=== PATIENT | female | born 1955 | race Caucasian/White ===

== ENCOUNTER → 2016-08-15 | Outpatient (CLI) | payer OTHER | LOC: MAMO 09:49 | DX: Z12.31 Encounter for screening mammogram for malignant neoplasm of breast (principal); Z90.710 Acquired absence of both cervix and uterus | CPT/HCPCS: G0202 ==

== ENCOUNTER → 2020-09-08 | Outpatient (CLI) | payer OTHER, SELFPAY ==
[~2020-09-08] MED LIST: ALTOPREV40 MG PO; CALCIUM + VITA1 EACH PO; CALCIUM600 MG PO; CELEXA40 MG PO; ECOTRIN81 MG PO; KEFLEX CAP 500500 MG PO; LOPRESSOR 25 MG25 MG PO; OMNICEF 300 MG300 MG PO; PREDNISONE 50 M50 MG PO; PREDNISONE10 MG PO; PREDNISONE20 MG PO; PROTONIX 20 MG20 MG PO; PROTONIX40 MG PO; ROBITUSSIN DM473 ML PO; TESSALON PERLE100 MG PO; VENTOLIN HFA 66.7 GM INH; VIBRAMYCIN100 MG PO; VITAMIN D32000 UNI1 PO; VITAMIN D325 MCG PO; ZITHROMAX250 MG PO; ZOCOR20 MG PO; ZOFRAN ODT 4 MG4 MG SL
== END ==
LOC: LAB 10:20
PROVIDERS: Family Medicine
DX: M79.672 Pain in left foot (principal); E11.9 Type 2 diabetes mellitus without complications; E55.9 Vitamin D deficiency, unspecified; E87.5 Hyperkalemia; E53.8 Deficiency of other specified B group vitamins
CPT/HCPCS: 36415; 73630; 80053; 80061; 82607

== ENCOUNTER → 2020-10-17 | Outpatient (CLI) | payer OTHER | LOC: MAMO 15:18 | PROVIDERS: Family Medicine | DX: Z12.31 Encounter for screening mammogram for malignant neoplasm of breast (principal); E11.9 Type 2 diabetes mellitus without complications; E55.9 Vitamin D deficiency, unspecified | CPT/HCPCS: 36415; 77063; 77067; 82043; 82570 ==

== ENCOUNTER 2020-10-31 09:57 | Observation (INO) | payer OTHER ==
[~2020-10-31] VITALS: Ht 154.9 cm; Wt 71.7 kg
[~2020-10-31 09:57] MED LIST changes: -CELEXA40 MG PO; -PROTONIX40 MG PO; -VITAMIN D325 MCG PO
[2020-10-31 10:58] LABS: HEMOGLOBIN 14.4 gm/dl (12.3-15.3); RED BLOOD COUNT 4.52 M/UL (4.00-5.10); WHITE BLOOD COUNT 7.8 K/UL (4.5-11.0)
[2020-10-31 11:25] LABS: BUN/CREATININE RATIO 12 (0-10)
[2020-10-31] MEDS ORDERED: PROTONIX40 MG PO (15:20)
[2020-10-31] MEDS ORDERED: VITAMIN D325 MCG PO (15:21)
[2020-10-31] MEDS ORDERED: CELEXA40 MG PO (18:00)
[2020-11-01 02:45] LABS: HEMOGLOBIN 12.7 gm/dl (12.3-15.3); WHITE BLOOD COUNT 6.6 K/UL (4.5-11.0)
[2020-11-01 03:03] LABS: RED BLOOD COUNT 4.03 M/UL (4.00-5.10)
== END 2020-11-01 18:30 | disposition home or self-care (01) ==
LOC: ER1 09:57 → M/S 14:30 → CDU 14:30 → M/S 16:54
PROVIDERS: Internal Medicine; Physician Assistant; ADMIT Internal Medicine
DX: R07.9 Chest pain, unspecified (principal); M79.601 Pain in right arm; M79.602 Pain in left arm; I95.9 Hypotension, unspecified; R77.8 Other specified abnormalities of plasma proteins; E11.9 Type 2 diabetes mellitus without complications; E78.5 Hyperlipidemia, unspecified; K21.9 Gastro-esophageal reflux disease without esophagitis; M54.6 Pain in thoracic spine; M54.5 Low back pain; G89.29 Other chronic pain; Z87.891 Personal history of nicotine dependence; Z88.2 Allergy status to sulfonamides; Z88.5 Allergy status to narcotic agent; Z79.82 Long term (current) use of aspirin; Z79.899 Other long term (current) drug therapy; Z20.822 Contact with and (suspected) exposure to COVID-19
CPT/HCPCS: ECHO; 36415; 70450; 71046; 78452; 80048; 80053; 81001; 82550; 82553; 83036; 83874; 84484; 85025; 93005; 93017; 93306; 96372; 99285; A9502; G0378; J1650; J2785; J7030; U0002

== ENCOUNTER → 2020-12-06 | Outpatient (CLI) | payer OTHER, SELFPAY ==
[~2020-12-06] MED LIST changes: +CELEXA40 MG PO; +PROTONIX40 MG PO; +VITAMIN D325 MCG PO
== END ==
LOC: LAB 11:52
PROVIDERS: Internal Medicine Cardiovascular Disease
DX: I10 Essential (primary) hypertension (principal)
CPT/HCPCS: 36415; 80053

== ENCOUNTER → 2020-12-06 | Outpatient (CLI) | payer OTHER | LOC: KOH-I 12:43 | DX: Z87.891 Personal history of nicotine dependence (principal) | CPT/HCPCS: 71271 ==

== ENCOUNTER 2020-12-27 12:27 | Emergency (ER) | payer OTHER, SELFPAY ==
[2020-12-27 15:25] LABS: HEMOGLOBIN 13.1 gm/dl (12.3-15.3); RED BLOOD COUNT 4.08 M/UL (4.00-5.10); WHITE BLOOD COUNT 7.5 K/UL (4.5-11.0)
[2020-12-27 15:52] LABS: BUN/CREATININE RATIO 14 (0-10)
== END 2020-12-27 18:31 | disposition home or self-care (01) ==
LOC: ER1 12:27
PROVIDERS: Physician Assistant
DX: R55 Syncope and collapse (principal); E11.649 Type 2 diabetes mellitus with hypoglycemia without coma; E78.5 Hyperlipidemia, unspecified; K21.9 Gastro-esophageal reflux disease without esophagitis; Z90.710 Acquired absence of both cervix and uterus
CPT/HCPCS: 70450; 71045; 73502; 80053; 82550; 82553; 83874; 84484; 85025; 93005; 99284

== ENCOUNTER → 2021-05-11 | Outpatient (CLI) | payer OTHER ==
[2021-05-11 12:09] LABS: HEMOGLOBIN 12.5 gm/dl (12.3-15.3); WHITE BLOOD COUNT 6.8 K/UL (4.5-11.0)
== END ==
LOC: LAB 11:31
PROVIDERS: Family Medicine
DX: E78.5 Hyperlipidemia, unspecified (principal); I10 Essential (primary) hypertension; E55.9 Vitamin D deficiency, unspecified; E53.8 Deficiency of other specified B group vitamins; M25.561 Pain in right knee; R93.6 Abnormal findings on diagnostic imaging of limbs
CPT/HCPCS: 36415; 73564; 80053; 80061; 82607; 83735; 85027

== ENCOUNTER → 2021-05-17 | Outpatient (CLI) | payer OTHER | LOC: EXRD 12:43 | DX: M85.80 Other specified disorders of bone density and structure, unspecified site (principal); Z78.0 Asymptomatic menopausal state | CPT/HCPCS: 77080 ==

== ENCOUNTER → 2021-11-27 | Outpatient (CLI) | payer MEDICARE | LOC: MAMO 15:03 | DX: Z12.31 Encounter for screening mammogram for malignant neoplasm of breast (principal); Z90.710 Acquired absence of both cervix and uterus | CPT/HCPCS: 77063; 77067 ==

== ENCOUNTER → 2022-01-16 | Day surgery (SDC) | payer MEDICARE ==
[~2022-01-16] MED LIST changes: +B-100 COMPLEX100 MG PO; +CITALOPRAM HBR20 MG PO; +EMERGEN-C 500500 MG PO; +LASIX20 MG PO; +METOPROLOL TART25 MG PO; +PEPCID40 MG PO; +POTASSIUM CHLOR8 MEQ PO; +TRADJENTA5 MG PO
== END | disposition home or self-care (01) ==
LOC: OR 07:19
PROVIDERS: Internal Medicine Gastroenterology
PROC: 0DB78ZX Excision of Stomach, Pylorus, Via Natural or Artificial Opening Endoscopic, Diagnostic (ICD-10-PCS; 2022-01-16)
PROC: 0DB68ZX Excision of Stomach, Via Natural or Artificial Opening Endoscopic, Diagnostic (ICD-10-PCS; principal; 2022-01-16 08:50)
DX: K31.89 Other diseases of stomach and duodenum (principal); K21.9 Gastro-esophageal reflux disease without esophagitis; E11.9 Type 2 diabetes mellitus without complications; E78.00 Pure hypercholesterolemia, unspecified; M79.7 Fibromyalgia; E78.5 Hyperlipidemia, unspecified; J44.9 Chronic obstructive pulmonary disease, unspecified; Z79.82 Long term (current) use of aspirin; Z79.84 Long term (current) use of oral hypoglycemic drugs; Z79.899 Other long term (current) drug therapy; Z88.2 Allergy status to sulfonamides; Z88.5 Allergy status to narcotic agent; Z88.6 Allergy status to analgesic agent; Z91.040 Latex allergy status; Z91.09 Other allergy status, other than to drugs and biological substances
CPT/HCPCS: 82962; J2704; J7040